=== PATIENT | female | born 1940 | race Caucasian/White ===

== ENCOUNTER → 2020-03-08 | Outpatient (CLI) | payer MEDICARE ==
[2020-03-08 16:15] LABS: Free Thyroxine 1.47 ng/dL (0.70-1.60)
[2020-03-08 16:16] LABS: Thyroid Stimulating Hormone 3.36 uIU/mL (0.360-4.800)
== END | disposition home or self-care (01) ==
LOC: LAB SHORT 10:34 → LAB 10:34
PROVIDERS: Hospitalist
DX: E03.9 Hypothyroidism, unspecified (principal)
CPT/HCPCS: 84439; 84443

== ENCOUNTER → 2021-04-27 | Outpatient (CLI) | payer MEDICARE ==
[2021-04-27 15:27] LABS: Free Thyroxine 1.49 ng/dL (0.70-1.60); Triiodothyronine, Free 2.38 pg/mL (2.18-3.98)
[2021-04-28 08:11] LABS: BASO (ABSOLUTE) 0.1 x10E3/uL (0.0-0.2); BASOS 1 % (Not Estab.); EOS 3 % (Not Estab.); EOS (ABSOLUTE) 0.3 x10E3/uL (0.0-0.4); HEMATOCRIT 45.4 % (34.0-46.6); IMMATURE GRANS (ABS) 0.1 x10E3/uL (0.0-0.1); IMMATURE GRANULOCYTES 1 % (Not Estab.); LYMPHS 30 % (Not Estab.); LYMPHS (ABSOLUTE) 2.9 x10E3/uL (0.7-3.1); MCH 27.2 pg (26.6-33.0); MCV 82 fL (79-97); MONOCYTES 13 % (Not Estab.); MONOCYTES(ABSOLUTE) 1.2 x10E3/uL (0.1-0.9); NEUTROPHILS 52 % (Not Estab.); NEUTROPHILS (ABSOLUTE) 5.2 x10E3/uL (1.4-7.0); PLATELETS 462 x10E3/uL (150-450); RBC 5.51 x10E6/uL (3.77-5.28); RDW 12.5 % (11.7-15.4); TSH 2.93 uIU/mL (0.450-4.500); WBC 9.7 x10E3/uL (3.4-10.8)
[2021-04-28 09:11] LABS: A/G RATIO 1.3 (1.2-2.2); BILIRUBIN, TOTAL 0.6 mg/dL (0.0-1.2); CALCIUM, SERUM 9.5 mg/dL (8.7-10.3); CREATININE, SERUM 0.65 mg/dL (0.57-1.00); GLOBULIN, TOTAL 3.1 g/dL (1.5-4.5); POTASSIUM, SERUM 4.5 mmol/L (3.5-5.2); PROTEIN, TOTAL, SERUM 7.2 g/dL (6.0-8.5)
== END | disposition home or self-care (01) ==
LOC: LAB SHORT 09:15
PROVIDERS: Hospitalist
DX: E03.9 Hypothyroidism, unspecified (principal); R03.0 Elevated blood-pressure reading, without diagnosis of hypertension
CPT/HCPCS: 80053; 84439; 84443; 84481; 85025